=== PATIENT | male | born 1990 | race American Indian/Alaskan Native ===

== ENCOUNTER 2020-02-12 12:33 | Outpatient (CLI) | payer MEDICAID ==
[2020-02-12 18:08] LABS: BASOPHILS # (AUTO) 0.1 10^3/uL (0.0-0.1); BASOPHILS % (AUTO) 0.8 %; EOSINOPHILS # (AUTO) 0.2 10^3/uL (0.0-0.7); EOSINOPHILS % (AUTO) 2.6 %; LYMPHOCYTES # (AUTO) 1.9 10^3/uL (1.5-3.5); LYMPHOCYTES % (AUTO) 29.7 %; MEAN CORPUSCULAR HEMOGLOBIN 29.7 pg (27.0-31.0); MEAN CORPUSCULAR VOLUME 87.5 fL (80.0-94.0); MEAN PLATELET VOLUME 10.7 fL (7.4-11.4); MONOCYTES # (AUTO) 0.6 10^3/uL (0.0-1.0); MONOCYTES % (AUTO) 9.1 %; NEUTROPHILS # (AUTO) 3.6 10^3/uL (1.5-6.6); NEUTROPHILS % (AUTO) 57.6 %; PLT - PLATELET COUNT 245 10^3/uL (130-450); RED BLOOD COUNT 5.38 10^6/uL (4.70-6.10); RED CELL DISTRIBUTION WIDTH 12.5 % (12.0-15.0); WHITE BLOOD COUNT 6.3 x10^3/uL (4.8-10.8)
[2020-02-12 19:30] LABS: ALBUMIN 5.1 g/dL (3.2-5.5); ALBUMIN/GLOBULIN RATIO 1.9 (1.0-2.2); BILIRUBIN,TOTAL 1.7 mg/dL (0.2-1.0); CALCIUM 10.1 mg/dL (8.5-10.3); CREATININE 0.9 mg/dL (0.6-1.2); TOTAL PROTEIN 7.8 g/dL (6.7-8.2)
[2020-02-12 20:02] LABS: RHEUMATOID FACTOR NEGATIVE (Negative)
== END 2020-02-12 23:59 | disposition home or self-care (01) ==
LOC: LAB.WCP 12:33
PROVIDERS: ATTEND Nurse Practitioner Family
DX: M25.50 Pain in unspecified joint (principal); Z57.9 Occupational exposure to unspecified risk factor
CPT/HCPCS: 36415; 80053; 81599; 82175; 83655; 83825; 85025; 85651; 86430

== ENCOUNTER 2020-04-23 13:52 | Outpatient (CLI) | payer MEDICAID ==
[2020-04-23] MEDS ORDERED: IOVERSOL 320 100 ML VIAL IVP ONE ×2 (14:02→14:15)
--- NOTE | 2020-04-23 15:09 | XRAY Report ---
PROCEDURE: Elbow 2 View RT INDICATIONS: ELBOW PAIN TECHNIQUE: 2 views of the elbow were acquired. COMPARISON: None FINDINGS: Bones: No fractures or dislocations. No suspicious bony lesions. Soft tissues: No elbow joint effusion. No suspicious soft tissue calcifications. IMPRESSION: Normal plain films. If clinically appropriate, please consider a follow-up elbow MRI (without and with contrast) for fu rther evaluation (assuming that there is no contraindication). Reviewed by: Nicolas Rosen MD on 04/23/2020 2:07 PM RAMON Approved by: Nicolas Rosen MD on 04/23/2020 2:07 PM RAMON Station ID: [id number]
--- NOTE | 2020-04-23 15:10 | CT Report ---
PROCEDURE: CHEST W INDICATIONS: SHORTNESS OF BREATH CONTRAST: IV CONTRAST: Optiray 320 ml: 100 PO CONTRAST: *NO PO CONTRAST TECHNIQUE: After the administration of intravenous contrast, 5 mm thick sections acquired from the pulmonary api tim to the posterior costophrenic angles. 7 mm thick coronal MIP reformats were acquired. For radia tion dose reduction, the following was used: automated exposure control, adjustment of mA and/or kV according to patient size. COMPARISON: None. FINDINGS: Image quality: Excellent. Lungs and pleura: No acute air space opacities. No pleural effusions or pneumothorax. Central and peripheral airways are patent and normal in caliber. Mediastinum: Heart size is normal. No pericardial effusion. No mediastinal or hilar adenopathy by size criteria. Thoracic aorta and central pulmonary arteries are normal in size. Esophagus is henok l in caliber. No hiatal hernia. Bones and chest wall: No suspicious bony lesions. No vertebral body compression fractures. No axil sachi or supraclavicular adenopathy by size criteria. Thyroid gland demonstrates no significant CT ab normality. Gynecomastia is incidentally noted. Abdomen: Visualized upper abdominal solid organs appear normal. Upper abdominal bowel loops are nor mal in caliber. IMPRESSION: A cause of shortness of breath is not identified. Incidental note is made of: Bilateral gynecomastia Reviewed by: Nicolas Rosen MD on 04/23/2020 2:09 PM AKDT Approved by: Nicolas Rosen MD on 04/23/2020 2:09 PM AKDT Station ID: [id number]
== END 2020-04-23 13:53 | disposition home or self-care (01) ==
LOC: DI 13:52
PROVIDERS: ATTEND Nurse Practitioner Family
DX: R06.02 Shortness of breath (principal); R68.3 Clubbing of fingers; M70.21 Olecranon bursitis, right elbow
CPT/HCPCS: 71260; 73070; Q9967

== ENCOUNTER 2020-09-21 12:19 | Outpatient (CLI) | payer MEDICAID ==
--- NOTE | 2020-09-21 16:15 | CT Report ---
PROCEDURE: LUMBAR SPINE WO INDICATIONS: CHRONIC LBP TECHNIQUE: Noncontrast 3 mm thick sections acquired from the T12 level to the sacrum. Sagittal and coronal refo rmats were constructed. For radiation dose reduction, the following was used: automated exposure co ntrol, adjustment of mA and/or kV according to patient size. COMPARISON: None. FINDINGS: Normal lumbar vertebral body height and alignment. No suspicious lytic or blastic osseous lesion. No significant degenerative changes of the facets or posterior elements. Regional soft tissues are withi n normal limits. T12-L1: No spinal canal or neural foraminal stenosis. L1-L2: No spinal canal or neural foraminal stenosis. L2-L3: Disc bulge flattens the ventral thecal sac, particularly in the left subarticular zone. For aminal components of the disc bulge and mild bilateral neural foraminal stenosis, left greater than r ight. L3-L4: Diffuse disc bulge flattens ventral thecal sac. Frontal components of the disc bulge are pre sent with tracer foraminal narrowing. L4-L5: Diffuse disc bulge and a superimposed broad-based posterior disc protrusion as well as a foc al extrusion in the central zone, combining to flatten and indent the ventral thecal sac. There may b e mass effect upon the descending L5 nerve roots within both subarticular zones. Foraminal components of the disc bulge and mild bilateral neural foraminal stenosis. L5-S1: Diffuse disc bulge and a superimposed broad-based posterior disc protrusion. Disc material h erniating in the left subarticular zone abuts and displaces the descending left S1 nerve roots. No ne ural foraminal stenosis. Soft tissues: No retroperitoneal masses or hematomas. Visualized aorta is normal in caliber. IMPRESSION: Suspected impingement of the descending left S1 nerve roots at the L5-S1 level due to a focal herniat ion. Broad-based posterior disc protrusion and a focal extrusion at L4-L5 with possible mass effect upon t he descending L5 nerve roots (MRI would be more helpful in this regard). Reviewed by: Caden Mcgrath MD on 09/21/2020 4:14 PM PST Approved by: Caden Mcgrath MD on 09/21/2020 4:14 PM PST Station ID: [id number]
== END 2020-09-21 12:20 | disposition home or self-care (01) ==
LOC: DI 12:19
PROVIDERS: ATTEND Nurse Practitioner Family
DX: M51.17 Intervertebral disc disorders with radiculopathy, lumbosacral region (principal); M51.26 Other intervertebral disc displacement, lumbar region

== ENCOUNTER 2020-12-02 21:57 | Emergency (ER) | payer MEDICAID ==
--- OUTSIDE RECORDS SUMMARY | 2020-12-02 22:32 | EXTERNAL MEDICAL SUMMARY RPT | Continuity of Care Document ---
:1990 Demographics Phone Unavailable Preferred Language Unknown Marital Status Unknown Presybeterian Affiliation Unknown Race Unknown Ethnic Group Unknown Author Organization [facility] Address [address] [place] [address] Phone Social History date description facility [id number]
[2020-12-02] MEDS ORDERED: LIDOCAINE-MPF 2% 5 ML VIAL SUBQ STA (23:02)
--- NOTE | 2020-12-02 23:54 | ED Physician Documentation ---
History of Present Illness - Stated complaint Stated Complaint: RT FOOT PX - Chief complaint Chief Complaint: Resp - History obtained from History obtained from: Patient - Additonal information Additional information: 30-year-old man presents with right first toe ingrown toenail over the past couple days, with acute onset throbbing constant nonradiating pain after stubbing it this evening. denies fevers, joint pain, difficulty moving the toe. Review of Systems Skin: reports: Other (ingrown toenail) Musculoskeletal: reports: Extremity pain Neurologic: denies: Focal weakness, Numbness PD PAST MEDICAL HISTORY - Present Medications Home Medications: Ambulatory Orders Medication Instructions Recorded Confirmed Mupirocin 2% Oint [Bactroban 2% 1 applic TOP BID #50 gm 12/02/20 Oint] - Allergies Allergies/Adverse Reactions: Allergies Allergy/AdvReac Type Severity Reaction Status Date / Time No Known Drug Allergies Allergy Verified 12/02/20 22:07 PD ED PE NORMAL - Vitals Vital signs reviewed: Yes - General General: Alert and oriented X 3, No acute distress, Well developed/nourished - HEENT HEENT: Atraumatic, PERRL, EOMI - Derm Derm: Normal color, Warm and dry - Extremities Extremities: No deformity, Normal ROM s pain, Other (R first toe with ingrown toenail and mild paronychia to inner (medial) nailbed. ) - Neuro Neuro: Alert and oriented X 3 Results - Vitals Vitals: Vital Signs - 24 hr 12/02/20 22:06 Temperature 36.4 C L Heart Rate 74 Respiratory 16 Rate Blood Pressure 129/83 H O2 Saturation 99 Oxygen O2 Source Room air Procedures - Abscess I&D (location) Toe right Preparation: Alcohol, Lidocaine 2 % Incision: Incised with scalpel, Purulent drainage Other: Pt tolerated well, Antibiotic prescribed (ointment) PD MEDICAL DECISION MAKING - ED course ED course: 30-year-old man presents with right toe paronychia and ingrown toenail. I numbed the toe and successfully drained a small amount of purulent fluid. I advised him to do hot soaks warm soaking foot baths and to return if he had any new or worsening symptoms or other concerns. Patient will follow up with his primary doctor. Departure - Departure Disposition: 01 Home, Self Care Clinical Impression: Paronychia Condition: Good Instructions: ED Fingernail Infec Prescriptions: Mupirocin 2% Oint [Bactroban 2% Oint] 1 applic TOP BID #50 gm Comments: You are seen in the emergency department for a toenail infection. Make sure that you do warm soapy soaks for 20 minutes every hour as much as you can. This will help it heal. Also make sure that you cut your nails flat across instead of rounded, since that will prevent further ingrown toenails. Return to emergency department if you have any new or worsening symptoms or other concerns. Follow-up with your primary doctor.
[2020-12-03 00:02] VITALS: BP 136/81
--- NOTE | 2020-12-03 09:27 | XRAY Report ---
PROCEDURE: Foot 3 View RT INDICATIONS: R foot pain TECHNIQUE: 3 views of the foot were acquired. COMPARISON: None FINDINGS: Bones: No fractures or dislocations. No suspicious bony lesions. Soft tissues: No tibiotalar joint effusion. Achilles tendon appears normal. IMPRESSION: No acute osseous abnormality. Agree with preliminary report. Reviewed by: Piero Perez DO on 12/03/2020 8:25 AM RAMON Approved by: Piero Perez DO on 12/03/2020 8:25 AM RAMON Station ID: [id number]
== END 2020-12-03 | disposition home or self-care (01) ==
LOC: ED 21:57
DX: L03.031 Cellulitis of right toe (principal)
CPT/HCPCS: 10060

== ENCOUNTER 2022-06-29 22:34 | Emergency (ER) | payer MEDICAID ==
[2022-06-29 22:41] VITALS: BP 125/77
--- NOTE | 2022-06-29 23:33 | XRAY Report ---
PROCEDURE: Chest 1 View X-Ray INDICATIONS: cough/SOA TECHNIQUE: One view of the chest was acquired. COMPARISON: CT chest 04/23/2020. FINDINGS: Surgical changes and devices: None. Lungs and pleura: No pleural effusions or pneumothorax. Lungs are clear. Mediastinum: Mediastinal contours appear normal. Heart size is normal. Bones and chest wall: No suspicious bony lesions. Overlying soft tissues appear unremarkable. IMPRESSION: 1. No acute cardiopulmonary disease. Reviewed by: Milton Rubi MD on 06/29/2022 11:40 PM PST Approved by: Milton Rubi MD on 06/29/2022 11:40 PM PST Station ID: [id number]
[2022-06-29] MEDS ORDERED: DEXAMETHASONE 10 MG/ML VIAL PO STA (23:46)
[2022-06-29] MEDS ORDERED: CHERRY SYRUP 10 ML UDC PO ONE (23:46)
--- NOTE | 2022-06-29 23:49 | ED Physician Documentation ---
PD HPI URI - Stated complaint Stated Complaint: FEVER/SOA/COUGH - Chief complaint Chief Complaint: Resp - History obtained from History obtained from: Patient - Additional information Additional information: Patient is a 32-year-old male presenting for evaluation of a cough that is been present for 3 weeks. Patient reports initially getting ill 3 weeks ago as did his family members. They were presumed to have influenza a by [facility].He then developed a fever 1 week ago for a day but that has also resolved. He continues to have a cough with clear phlegm which is worse at night.His and 2 children have also continued to have a cough and he reports they were seen at the [facility] ER over the past 2 days and all 3 were diagnosed with bacterial pneumonia and started on antibiotics.He then decided to seek evaluation as he is concerned he may have pneumonia. Denies smoking history or asthma.Denies chest pain. Review of Systems Constitutional: denies: Fever Nose: reports: Congestion Cardiac: denies: Chest pain / pressure Respiratory: reports: Cough. denies: Dyspnea GI: denies: Abdominal Pain Musculoskeletal: denies: Back pain Neurologic: denies: Headache PD PAST MEDICAL HISTORY - Past Medical History Past Medical History: Yes Endocrine/Autoimmune: Other Other Past Medical History: Currently being worked up for autoimmune disease 06/2022 - Past Surgical History Past Surgical History: No - Present Medications Home Medications: Ambulatory Orders Medication Instructions Recorded Confirmed Albuterol Sulf [Ventolin Hfa 1 - 2 puffs INH Q4HR PRN #1 each 06/29/22 Inhaler] - Allergies Allergies/Adverse Reactions: Allergies Allergy/AdvReac Type Severity Reaction Status Date / Time No Known Drug Allergies Allergy Verified 06/29/22 22:41 - Social History Does the pt smoke?: No Smoking Status: Never smoker Does the pt drink ETOH?: Yes Does the pt have substance abuse?: No - Immunizations Immunizations are current?: Yes PD ED PE NORMAL - General General: Alert and oriented X 3, No acute distress, Well developed/nourished - HEENT HEENT: Atraumatic, Moist mucous membranes, Pharynx benign - Neck Neck: Supple, no meningeal sign - Cardiac Cardiac: RRR, Strong equal pulses - Respiratory Respiratory: No respiratory distress, Clear bilaterally, Other (Dry Cough when taking deep breaths) - Derm Derm: Warm and dry - Extremities Extremities: No edema - Neuro Neuro: Normal speech Results - Vitals Vitals: Vital Signs - 24 hr 06/29/22 22:39 Temperature 36 C L Heart Rate 87 Respiratory 18 Rate Blood Pressure 125/77 O2 Saturation 97 Oxygen O2 Source Room air PD MEDICAL DECISION MAKING - ED course Complexity details: reviewed results, re-evaluated patient ED course: Patient with cough for 3 weeks. Vital signs are stable. Lung sounds are clear. Chest x-ray does not show signs of pneumonia. Explained that his symptoms are likely related to a viral illness given the high prevalence of a number of respiratory viruses in our community.Patient given a dose of a steroid and prescription for albuterol for Bronchospasms and coughing.Patient counseled to continue with supportive care as well as concerning symptoms to return for. Departure - Departure Disposition: 01 Home, Self Care Clinical Impression: Viral URI with cough Condition: Stable Instructions: ED Viral Syndrome Prescriptions: Albuterol Sulf [Ventolin Hfa Inhaler] 1 - 2 puffs INH Q4HR PRN #1 each PRN Reason: Shortness Of Air/Wheezing Comments: Your vital signs are stable and your lungs are clear. Your chest x-ray also does not show signs of pneumonia. I suspect that your symptoms are still from a viral illness in which case antibiotics would not be helpful. We are seeing a number of respiratory viruses, not only flu, but also RSV, COVID as well as other common cold viruses that could be causing your symptoms.I have given you a dose of a steroid which may help reduce some of the inflammation that you are feeling as well as sent a prescription for an albuterol inhaler to [facility] in [place]. Please continue to stay hydrated. If you have any worsening symptoms please consider return to the ER. Discharge Date/Time: 06/29/22 23:59
== END 2022-06-29 23:59 | disposition home or self-care (01) ==
LOC: ED 22:34
DX: J06.9 Acute upper respiratory infection, unspecified (principal)
CPT/HCPCS: 71045; 99282; 99283; A9270

== ENCOUNTER 2022-09-04 10:52 | Outpatient (CLI) | payer MEDICAID ==
[2022-09-05 07:10] LABS: AFP SERUM TUMOR MARKER 2.1 ng/mL (0.0-6.9)
[2022-09-06 10:09] LABS: LYME TOTAL AB CIA Negative (Negative)
== END 2022-09-04 10:53 | disposition home or self-care (01) ==
LOC: LAB.N 10:52
PROVIDERS: ATTEND Nurse Practitioner
DX: M35.9 Systemic involvement of connective tissue, unspecified (principal); M25.50 Pain in unspecified joint; Z80.9 Family history of malignant neoplasm, unspecified
CPT/HCPCS: 36415; 82105; 85598; 85613; 85732; 86618